=== PATIENT | male | born 1950 | race Caucasian/White ===

== ENCOUNTER 2020-06-11 10:08 | Day surgery (SDC) | payer MEDICARE, BC ==
--- NOTE | 2020-06-10 15:46 | Pre-Procedure Note/Attestation ---
Pre-Procedure Note/Attestation Complete Prior to Procedure Planned Procedure: right - Removal of cataract and placement of intraocular lens, right eye Procedure Narrative: Removal of cataract and placement of intraocular lens, right eye Indications for Procedure Pre-Operative Diagnosis: Cataract, combined, right eye Attestation I attest that I discussed the nature of the procedure; its benefits; risks and complications; and alternatives (and the risks and benefits of such alternatives), prior to the procedure, with the patient (or the patient's legal access representative). I attest that, if there was a reasonable possibility of needing a blood transfusion, the patient (or the patient's legal access representative) was given the [place] [facility] [employer] [facility] standardized written summary, pursuant to the [employer] Blood Safety Act ([place] Health and Safety Code # 1645, as amended). I attest that I re-evaluated the patient just prior to the surgery and that there has been no change in the patient's H&P, except as documented below: Agus Yip MD Jun 10, 2020 15:46
[~2020-06-11] VITALS: Ht 167.6 cm; Wt 75.3 kg
[2020-06-11] VITALS (7 sets, daily range): BP systolic 121–137; BP diastolic 75–78
[~2020-06-11 10:08] MED LIST: Cyclopentolate 2% Opth Sol RIGHT EYE ONE
[2020-06-11] MEDS ORDERED: Tropicamide 1% Opth 15ml Soln ONE (10:35)
[2020-06-11] MEDS ORDERED: Akten 3.5% 1ml Btl ONE (10:35)
[2020-06-11] MEDS ORDERED: Tobradex Opth Susp 2.5ml ONE (10:35)
[2020-06-11] MEDS ORDERED: Ciprofloxacin Opth Soln 5ml ONE (10:35)
[2020-06-11] MEDS ORDERED: Cyclopentolate 2% Opth Sol ONE (10:35)
[2020-06-11] MEDS ORDERED: Phenylephrine 10% Opth Soln 5ml ONE (10:35)
[2020-06-11] MEDS ORDERED: Diclofenac Sod 0.1% Op Soln ONE (10:36)
[2020-06-11] MEDS: Tropicamide 1% Opth 15ml Soln RIGHT EYE SCH ×3 (10:40→11:03)
[2020-06-11] MEDS: Akten 3.5% 1ml Btl RIGHT EYE SCH ×3 (10:40→11:04)
[2020-06-11] MEDS: Phenylephrine 10% Opth Soln 5ml RIGHT EYE SCH ×3 (10:40→11:03)
[2020-06-11] MEDS: Ciprofloxacin Opth Soln 5ml RIGHT EYE SCH ×3 (10:42→11:03)
[2020-06-11] MEDS ORDERED: timoloL maleate 0.5% Op Soln 2.5ml ONE ×2 (10:42→13:42)
[2020-06-11] MEDS ORDERED: prednisoLONE acetate 1% Opth Susp 1ml ONE (10:42)
[2020-06-11] MEDS ORDERED: Fluorescein Strips ONE ×2 (10:42→13:42)
[2020-06-11] MEDS ORDERED: EPINEPHrine 1mg/1ml Amp ONE (10:42)
[2020-06-11] MEDS ORDERED: acetaZOLAMIDE 500mg Inj ONE (10:42)
[2020-06-11] MEDS: Diclofenac Sod 0.1% Op Soln RIGHT EYE SCH ×3 (10:42→11:04)
[2020-06-11] MEDS ORDERED: Lidocaine 4% Amp 5ml ONE (10:42)
[2020-06-11] MEDS: Tobradex Opth Susp 2.5ml RIGHT EYE SCH ×3 (10:42→11:04)
[2020-06-11] MEDS ORDERED: Lidocaine 1% MPF 10mg/ml 5ml ONE ×2 (10:42→11:16)
[2020-06-11] MEDS ORDERED: Maxitrol Opth Oint 3.5gm ONE (10:42)
[2020-06-11] MEDS ORDERED: Tetracaine 0.5% Opth 4ml Soln ONE (10:43)
[2020-06-11] MEDS ORDERED: BSS 15ml BTL ONE (10:43)
[2020-06-11] MEDS ORDERED: BSS 500ml btl ONE ×2 (10:43→13:15)
[2020-06-11] MEDS ORDERED: Bupivacaine 0.75% 30ml vial INJ ONE ×2 (10:43→13:42)
[2020-06-11] MEDS ORDERED: Povidone-Iodine 5% opth solution ONE (10:43)
[2020-06-11] MEDS ORDERED: Acetylcholine Injection (OR) ONE (10:43)
[2020-06-11] MEDS ORDERED: Sodium Hyaluronate 10 mg/ml 0.85ml ONE (10:44)
[2020-06-11] MEDS ORDERED: AMLODIPINE BESYL5 MG ORAL (10:59)
[2020-06-11] MEDS ORDERED: fentaNYL 100 mcg/2 mL IV ONE (11:15)
[2020-06-11] MEDS ORDERED: Sodium Chloride 10ml vial INJ ONE (11:46)
[2020-06-11] MEDS ORDERED: ePHEDrine 50mg/ml Inj ONE (11:46)
[2020-06-11] MEDS ORDERED: LR 1000ml 1,000 ML IVLG SCH (13:00)
[2020-06-11] MEDS ORDERED: fentaNYL 100 mcg/2 mL IV PRN (13:00)
[2020-06-11] MEDS ORDERED: DiphenhydrAMINE 50mg/ml Inj IVP PRN (13:00)
--- NOTE | 2020-06-11 13:00 | Anethesia Preoperative Eval ---
Anesthesia Pre-op PMH/ROS General Date of Evaluation: Jun 11, 2020 Time of Evaluation: 12:20 Anesthesiologist: Sarika ASA Score: ASA 2 Mallampati Score Class I : Soft palate, uvula, fauces, pillars visible Class II: Soft palate, uvula, fauces visible Class III: Soft palate, base of uvula visible Class IV: Only hard plate visible Mallampati Classification: Class II Surgeon: Phi Diagnosis: R eye cataract Surgical Procedure: Cataract extraction Anesthesia History: none Family History: no anesthesia problems Allergies: Coded Allergies: No Known Allergies (Unverified , 06/09/20) Medications: see eMAR Patient NPO?: Yes Past Medical History Cardiovascular: Reports: HTN - stable Pulmonary: Denies: asthma, COPD, JOS, other Gastrointestinal/Genitourinary: Reports: GERD; Denies: CRI, ESRD, other Neurologic/Psychiatric: Denies: dementia, CVA, depression/anxiety, TIA, other Endocrine: Denies: DM, hypothyroidism, steroids, other HEENT: Reports: cataract (L), cataract (R); Denies: glaucoma, IONE (L), IONE (R), other Hematology/Immune: Denies: anemia, DVT, bleeding disorder, other Musculoskeletal/Integumentary: Denies: OA, RA, DJD, DDD, edema, other PMH Narrative: as above PSxH Narrative: none Anesthesia Pre-op Phys. Exam Physician Exam Last Vital Signs Date Time Temp Pulse Resp B/P (MAP) Pulse Ox O2 Delivery O2 Flow Rate FiO2 06/11/20 11:01 Room Air 06/11/20 10:45 97.3 69 18 137/77 95 Constitutional: NAD Neurologic: CN 2-12 intact Cardiovascular: RRR, no M/R/G Respiratory: CTA Airway Exam Mallampati Score: Class II MO: full Neck: flexible ROM: full Teeth: intact Dentures: no upper, no lower Anesthesia Pre-op A/P Labs see chart Studies Pre-op Studies: EKG - NSR Risk Assessment & Plan Assessment: ASA 2 Plan: MAC Status Change Before Surgery: No Valeroi Baum MD Jun 11, 2020 13:00
--- NOTE | 2020-06-11 13:35 | Immediate Post-Op Evaluation ---
Immediate Post-Op Evalulation Immediate Post-Op Evalulation Procedure: R eye cataract extraction with IOL Date of Evaluation: Jun 11, 2020 Time of Evaluation: 13:34 IV Fluids: 400 Blood Products: none Estimated Blood Loss: none Urinary Output: none Blood Pressure Systolic: 137 Blood Pressure Diastolic: 75 Pulse Rate: 68 Respiratory Rate: 18 O2 Sat by Pulse Oximetry: 99 Temperature (Fahrenheit): 98.6 Pain Score (1-10): 1 Nausea: No Vomiting: No Complications none Patient Status: awake, patent, none Hydration Status: adequate Valerio Baum MD Jun 11, 2020 13:35
--- NOTE | 2020-06-11 13:36 | Discharge Instructions ---
Discharge Instructions Discharge Instructions Follow Up Orders Wear eye shield at all times except to place eye drops Continue preop eye drops Followup tomorrow in Dr Yip's office Return to Work/School on: Jun 11, 2020 For Congestive Heart Failure Reminder Report to your physician any weight gain of 5 pounds or more in one week. Agus Yip MD Jun 11, 2020 13:35
--- NOTE | 2020-06-11 13:38 | Brief Operative Note ---
Immediate Post Operative Note Operative Note Pre-op Diagnosis: Cataract, combined, right eye Procedure: Phaco PC IOL, right eye Post-op Diagnosis: same as pre-op Surgeon: Adela Yip MD MS Anesthesiologist: Dr Baum Anesthesia: local, MAC Specimen: none Complications: none Fluids: see chart Implant(s) used?: Yes - DCB00 18.0 Agus Yip MD Jun 11, 2020 13:38
--- NOTE | 2020-06-13 21:14 | Operative Note - Dictated ---
DATE OF OPERATION: 06/11/2020 SURGEON: Agus Yip MD. DIRECTOR OF ASSISTED LIVING SURGEON: None. ANESTHESIOLOGIST: Valerio Baum MD. ANESTHESIA: Local/standby/monitored anesthesia care. PREOPERATIVE DIAGNOSIS: Cataract, combined, right eye. POSTOPERATIVE DIAGNOSIS: Cataract, combined, right eye. PROCEDURE: 1. Phacoemulsification cataract, right eye. 2. Placement of posterior chamber intraocular lens, right eye (model, Masoud and [employer]oud DCB00, power 18.0). SPECIMENS: None. COMPLICATIONS: None. INDICATIONS FOR SURGERY: The patient has had the painless progressive decrease in visual acuity in the secondary to cataract. The patient understands the risks of surgery including infection, bleeding, need for further surgery, loss of vision, no improvement in vision, loss of the eye, loss of life, glaucoma, retinal detachment, understands these risks and elects to proceed with surgery. FINDINGS: The patient had a +4 nuclear sclerotic cataract as well as a +2 cortical cataract. OPERATIVE NOTE: After informed consent was obtained, the patient was brought into the operating room, placed in supine position. Cardiac and respiratory monitors were attached. A time-out was performed and all criteria were met. Everyone in the room agreed. The right eye was then draped and prepped in a sterile manner for ocular surgery. A lid speculum was placed in the eye. A 1% lidocaine preservative-free was injected at the 9 o'clock limbus. A conjunctiva peritomy from 08:30 to 09:30 was made and dissected posteriorly. Hemostasis was maintained with bipolar cautery. A 2.6 mm limbal incision was made centered approximately 9 o'clock and dissected anteriorly. Paracentesis was made at 12 o'clock. Shugarcaine was injected into the anterior chamber followed by Healon. The anterior chamber was then entered using a 2.8 mm keratome through the limbal incision. An anterior capsulorrhexis was then performed. Hydrodissection and hydrodelineation was then performed. The lens was then phacoemulsified using divide and conquer four-quadrant technique. Residual cortical material was then aspirated. Healon was injected into the anterior chamber and capsular bag. The lens was taken from its packaging and the tip of the cartridge was placed through the limbal incision and the lens was injected into the capsular bag and centered nicely with a Sinskey hook. Healon was then aspirated from the anterior chamber and capsular bag. The paracentesis along the wound was hydrated closed and a 10-0 nylon interrupted suture was placed through the limbal incision. The knot was rotated and buried. Care was taken during the entire procedure not to touch the endothelium. The wounds were checked and found to be watertight. The conjunctiva was closed with forceps cautery. The lens was examined and the optic and both haptics were in the capsular bag centered along the 9 o'clock and 3 o'clock meridian. The lid speculum and drapes were removed from the eye and drops of Pred Forte, TobraDex and moxifloxacin were applied to the eye followed by Maxitrol ointment and a shield. The patient tolerated the procedure well and left the operating room awake, alert, and in stable condition. Agus Yip M.D. DR: ADINA JOB#: [id number] CC:
== END 2020-06-11 14:30 | disposition home or self-care (01) ==
LOC: SUR 10:08
DX: H25.11 Age-related nuclear cataract, right eye (principal); H25.011 Cortical age-related cataract, right eye; I10 Essential (primary) hypertension; K21.9 Gastro-esophageal reflux disease without esophagitis
CPT/HCPCS: 66984; 94003; J0171; J1100; J2704; J3010; J3490; U0004; V2632; 94150